=== PATIENT | female | born 1980 | race Caucasian/White ===

== ENCOUNTER 2019-02-07 05:37 | Day surgery (SDC) | payer OTHER ==
[2019-02-04 12:51] LABS: HEMATOCRIT 39.1 % (36.0-47.0); HEMOGLOBIN 13.6 g/dL (12.0-15.5); MEAN CORPUSCULAR HEMOGLOBIN 31.6 pg (27.0-33.4); MEAN CORPUSCULAR HGB CONC 34.9 g/dL (32.0-36.0); MEAN CORPUSCULAR VOLUME 91 fl (80-97); PLATELET COUNT 275 10^3/uL (150-450); RED BLOOD COUNT 4.32 10^6/uL (3.72-5.28); RED CELL DISTRIBUTION WIDTH 12.4 % (11.5-14.0); WHITE BLOOD COUNT 6.7 10^3/uL (4.0-10.5)
[2019-02-04 12:53] LABS: APPEARANCE,URINE CLEAR; BILIRUBIN,URINE NEGATIVE (NEGATIVE); COLOR,URINE YELLOW; GLUCOSE, URINE NEGATIVE (NEGATIVE); KETONES,URINE 20 mg/dL (NEGATIVE); LEUKOCYTE ESTERASE,URINE SMALL (NEGATIVE); NITRITE,URINE NEGATIVE (NEGATIVE); PROTEIN,URINE NEGATIVE (NEGATIVE); URINE SPECIFIC GRAVITY 1.011; UROBILINOGEN,URINE NEGATIVE mg/dL (<2.0)
[2019-02-04 13:19] LABS: ALANINE AMINOTRANSFERASE 26 U/L (9-52); ALBUMIN 4.8 g/dL (3.5-5.0); ALKALINE PHOSPHATASE 53 U/L (38-126); ANION GAP 14 (5-19); ASPARTATE AMINO TRANSFERASE 30 U/L (14-36); BILIRUBIN,DIRECT 0.3 mg/dL (0.0-0.4); BILIRUBIN,TOTAL 0.5 mg/dL (0.2-1.3); BLOOD UREA NITROGEN 15 mg/dL (7-20); CALCIUM 9.9 mg/dL (8.4-10.2); CARBON DIOXIDE 21 mmol/L (22-30); CHLORIDE 103 mmol/L (98-107); GLUCOSE 76 mg/dL (75-110); POTASSIUM 4.7 mmol/L (3.6-5.0); SODIUM 138.4 mmol/L (137-145); TOTAL PROTEIN 7.7 g/dL (6.3-8.2)
[~2019-02-07 05:37] MED LIST: CLINDAMYCIN 900 MG/D5W RTU 900 MG/50 ML RTUPB IV ONE; GENTAMICIN SULFATE INJ 80 MG/2 ML VIAL ONE
[2019-02-07] MEDS ORDERED: LIDOCAINE 2% INJ-PF (20 MG/ML) 10 ML AMPUL ONE (06:59)
[2019-02-07] MEDS ORDERED: PROPOFOL INJ 200 MG/20 ML VIAL IV ONE (06:59)
[2019-02-07] MEDS ORDERED: MIDAZOLAM 2 MG/2 ML INJ ONE (06:59)
[2019-02-07] MEDS ORDERED: HYDROMORPHONE HCL INJ/PF 2 MG/ML AMPULE ONE (06:59)
[2019-02-07] MEDS ORDERED: FENTANYL CITRATE INJ/PF 100 MCG/2 ML AMPUL ONE (06:59)
[2019-02-07] MEDS ORDERED: ACETAMINOPHEN 1,000 MG/100 ML RTUPB IV ONE (06:59)
[2019-02-07] MEDS ORDERED: SCOPOLAMINE HYDROBROMIDE 1.5 MG PATCH.TD72 ONE (07:11)
[2019-02-07] MEDS ORDERED: PROMETHAZINE HCL INJ 25 MG/1 ML VIAL IV PRN ×3 (08:28→10:05)
[2019-02-07] MEDS ORDERED: DIPHENHYDRAMINE HCL 50 MG/ML VIAL IV PRN (08:28)
[2019-02-07] MEDS ORDERED: FENTANYL CITRATE INJ/PF 100 MCG/2 ML AMPUL IV PRN ×3 (08:28)
[2019-02-07] MEDS ORDERED: ONDANSETRON HCL INJ/PF 4 MG/2 ML SDV IV PRN (08:28)
[2019-02-07] MEDS ORDERED: MEPERIDINE HCL/PF INJ 25 MG/1 ML DISP.SYRIN IV PRN (08:28)
[2019-02-07] MEDS ORDERED: SUGAMMADEX SODIUM 200 MG/2 ML SDV IV ONE (09:14)
[2019-02-07] MEDS: FENTANYL CITRATE INJ/PF 100 MCG/2 ML AMPUL ONE ×2 (09:38→09:43)
[2019-02-07] MEDS ORDERED: SIMETHICONE 80 MG TAB.CHEW PO PRN (10:05)
[2019-02-07] MEDS ORDERED: ACETAMINOPHEN 1,000 MG/100 ML RTUPB IV PRN (10:05)
[2019-02-07] MEDS ORDERED: OXYTOCIN/NORMAL SALINE 20 UNIT/1,000 ML RTUINJ IV PRN (10:05)
[2019-02-07] MEDS ORDERED: MORPHINE SULFATE 10 MG/ML INJ IV PRN (10:05)
[2019-02-07] MEDS ORDERED: ACETAMINOPHEN 325 MG TABLET PO PRN (10:05)
[2019-02-07] MEDS ORDERED: OXYCODONE-ACETAMINOPHEN 5-325 MG TABLET PO PRN (10:05)
[2019-02-07] MEDS: IBUPROFEN 800 MG TABLET PO SCH ×2 (12:29→22:38)
[2019-02-07] MEDS ORDERED: NEOSTIGMINE METHYLSULFATE 10 MG/10 ML VIAL ONE (13:28)
[2019-02-07] MEDS ORDERED: ONDANSETRON HCL INJ/PF 4 MG/2 ML SDV ONE (13:28)
[2019-02-07] MEDS ORDERED: DEXAMETHASONE SOD PHOSPHATE INJ 4 MG/1 ML VIAL ONE (13:28)
[2019-02-07] MEDS ORDERED: METOCLOPRAMIDE HCL INJ/PF 10 MG/2 ML SDV ONE (13:28)
[2019-02-07] MEDS ORDERED: GLYCOPYRROLATE 1 MG/5 ML SYRINGE ONE (13:28)
[2019-02-07] MEDS ORDERED: ROCURONIUM BROMIDE INJ 50 MG/5 ML VIAL IV ONE (13:28)
[2019-02-07] MEDS: KETOROLAC TROMETHAMINE INJ/PF 30 MG/1 ML SDV IV SCH ×2 (14:28→21:56)
--- NOTE | 2019-02-07 14:39 | OPERATIVE REPORT E ---
Operative Report NAME: PAULINA OSCAR : 1980 AGE: 38Y DATE OF SURGERY: 02/07/2019 ROOM: 219 PREOPERATIVE DIAGNOSIS: Endometriosis, chronic pelvic pain, and abnormal uterine bleeding. POSTOPERATIVE DIAGNOSIS: Endometriosis, chronic pelvic pain, and abnormal uterine bleeding. OPERATION: Robotic-assisted total laparoscopic hysterectomy with bilateral salpingectomy with excision and fulguration of endometriosis. SURGEON: HEAVENLY MEZA M.D. ANESTHESIA: Mariposa Olvera M.D. with general and Franco Adame CRNA FINDINGS: A 14-week sized uterus, small amounts of endometrial implants in the bilateral uterosacral ligaments, normal tubes and ovaries. No other indications of pelvic adhesive disease. Normal-appearing appendix. COMPLICATIONS: None. ESTIMATED BLOOD LOSS: 100 mL. SPECIMENS REMOVED: Uterus, cervix, and fallopian tubes x2 as well as a left uterosacral pelvic biopsy. PROCEDURE IN DETAIL: The patient was taken to the operating room, prepared and draped in a normal sterile fashion in the dorsal lithotomy position. Under sterile conditions a Lutz catheter was placed to gravity. A speculum was then placed into the vagina and the cervix was prepped with Betadine and grasped on the anterior lip with a single-tooth tenaculum and dilated to accommodate the [employer] uterine manipulator which was placed without difficulty. The speculum and the tenaculum were then removed. Gloves were changed and attention was turned to the upper portion of the case. An umbilical skin incision was made to accommodate GelPort placement. The incision was carried through to the underlying layer of fascia with the scalpel and the fascia was grasped and then transected using Mayos. The peritoneal cavity was entered sharply with the Mayos as well. The GelPort was then placed with the camera, trocar, and air seal. The abdomen was then inflated with approximately 2 L of CO2 gas, and the patient was placed in steep Trendelenburg. The camera was introduced and the above findings were noted. Under direct visualization two 5 mm ports were placed approximately 10 cm on either side of the umbilicus. The robot was docked, and using the monopolar scissors and the vessel sealer I began with excision of the endometrial implant that was located on the left uterosacral ligament. This was passed off to the surgical garment assembly supervisor corporate administrative assistant through the corporate administrative assistant port. We then began with the right fallopian tube, and this was removed using the monopolar scissors and vessel sealer as needed. This was completely freed and then passed off through the accessory corporate administrative assistant port as well. The utero-ovarian ligament was then transected using the vessel sealer, and the rest of the uterine artery was skeletonized, transected, and coagulated using the vessel sealer until we reached the level of the internal cervical os. At this point the bladder flap was begun using the monopolar scissors and blunt dissection. We then turned our attention to the left side, and the left fallopian tube was removed in a similar fashion using monopolar scissors and the vessel sealer as needed, and this was passed off through the accessory port. The utero-ovarian ligament on this side was also transected using the vessel sealer, and the rest of the uterine artery was skeletonized, coagulated, and ligated using the vessel sealer down to the same level, and the bladder flap was then completed with further blunt dissection. We then began the colporrhaphy on the posterior aspect as this was where the cup was most noticeable through the mucosa, and the colporrhaphy was performed using the monopolar scissors following the cup in a circumferential fashion until the specimen was completely freed. The specimen was then removed through the vagina without difficulty. The instruments were changed to a Abhilash Needle Direct Mail Manager and a ProGrasp. The V-Loc needle was introduced through the assistance port, and the V-Loc was used to close the vaginal cuff, incorporating the uterosacral ligaments into the angle closure of the vaginal cuff for support. Once this was completed the *------* was ligated and removed through the assistance port. The ureters were inspected carefully and both found to be peristalsing normally with no signs of hydroureter. The robot was then undocked. I rescrubbed and closed the fascia at the umbilicus incision using 0 Vicryl on a UR6 needle and then closed the subcutaneous space using 2 interrupted sutures of the same 0 Vicryl. The skin at all three incision sites was closed with 4-0 Vicryl. The patient tolerated the procedure well. Sponge, lap, and needle counts were correct x2, and the patient was taken to recovery in stable condition. DICTATING PHYSICIAN: HEAVENLY MEZA M.D. [id number] PHY#: [id number] ID: [id number] JOB#: [id number] ACCT: [id number] cc:HEAVENLY MEZA M.D. >
[2019-02-07] MEDS ORDERED: HYOSCYAMINE SULFATE 0.125 MG TABLET PO PRN (16:51)
[2019-02-07] MEDS ORDERED: RINGERS SOLUTION,LACTATED 500 ML IV ONE (17:00)
[2019-02-07] MEDS: DOCUSATE SODIUM 100 MG CAPSULE PO SCH (17:31)
[2019-02-07] MEDS: OXYCODONE-ACETAMINOPHEN 5-325 MG TABLET PO PRN ×2 (17:57→23:46)
[2019-02-07] MEDS: RINGERS SOLUTION,LACTATED 1,000 ML IV PRN ×2 (18:19→21:57)
[2019-02-08] MEDS: IBUPROFEN 800 MG TABLET PO SCH ×2 (00:52→06:25)
[2019-02-08] MEDS: OXYCODONE-ACETAMINOPHEN 5-325 MG TABLET PO PRN ×2 (04:55→08:57)
[2019-02-08] MEDS: KETOROLAC TROMETHAMINE INJ/PF 30 MG/1 ML SDV IV SCH (06:20)
[2019-02-08 06:41] LABS: HEMATOCRIT 34.9 % (36.0-47.0); MEAN CORPUSCULAR HEMOGLOBIN 31.5 pg (27.0-33.4); MEAN CORPUSCULAR HGB CONC 34.4 g/dL (32.0-36.0); MEAN CORPUSCULAR VOLUME 92 fl (80-97); PLATELET COUNT 250 10^3/uL (150-450); RED BLOOD COUNT 3.81 10^6/uL (3.72-5.28); RED CELL DISTRIBUTION WIDTH 12.5 % (11.5-14.0); WHITE BLOOD COUNT 9.7 10^3/uL (4.0-10.5)
--- NOTE | 2019-02-08 07:51 | PDOC DISCHARGE SUMMARY ---
General - Admit/Disc Date/PCP Admission Date/Primary Care Provider: 02/07/19 12:01 CAL MINAYA MD Discharge Date: 02/08/19 - Discharge Diagnosis (1) Abnormal uterine bleeding Is this a current diagnosis for this admission?: Yes (2) Endometriosis Is this a current diagnosis for this admission?: Yes (3) Chronic female pelvic pain Is this a current diagnosis for this admission?: Yes - Additional Information Home Medications: Ascorbic Acid/Multivit-Min [Emergen-C 1,000 mg Packet] 1,000 mg PO DAILY 02/04/19 Diphenhydramine HCl [Benadryl] 25 mg PO QPM 02/04/19 Ethynodiol D-Ethinyl Estradiol [Zovia 1-50E] 1 each PO DAILY 02/04/19 Alprazolam [Xanax Xr 1 mg Tablet Extended Release] 1 tab PO PRN 02/07/19 History of Present Illness History of Present Illness: PAULINA OSCAR is a 38 year old female Hospital Course Hospital Course: underwent scheduled RATLH w/ b/l salpingectomy with excision and fulgaration of endometriosis. unremarkable postoperative course. voiding and tolerating r egular diet Physical Exam - Physical Exam Vital Signs: Temp Pulse Resp BP Pulse Ox 98.0 F 95 16 115/63 99 02/08/19 04:36 02/08/19 04:36 02/08/19 04:36 02/08/19 04:36 02/08/19 04:36 Intake & Output 02/07/19 02/08/19 02/09/19 06:59 06:59 06:59 Intake Total 0 3424 Output Total 2150 Balance 0 1274 Weight 59.42 kg General appearance: PRESENT: no acute distress, cooperative Head exam: PRESENT: atraumatic GI/Abdominal exam: PRESENT: soft - incsions clean/dry/intact Result Laboratory Results: 02/08/19 06:12 02/04/19 12:22 02/08/19 06:12 WBC 9.7 RBC 3.81 Hgb 12.0 Hct 34.9 L MCV 92 MCH 31.5 MCHC 34.4 RDW 12.5 Plt Count 250 Plan Discharge Plan: discharge home with scheduled follow up in [address] Grider Time Spent: Less than 30 Minutes Acute Heart Failure Is this a Heart Failure Patient?: No
[2019-02-08 10:04] VITALS: BP 119/76
[2019-02-08] MEDS: DOCUSATE SODIUM 100 MG CAPSULE PO SCH (10:16)
== END 2019-02-08 10:17 | disposition home or self-care (01) ==
LOC: OROUT 05:37 → 2S 11:29 → OROUT 12:00 → UNDOADMIN 12:01 → 2S 12:01 → OROUT 02-08 10:17 → UNDODISIN 02-08 10:17
PROVIDERS: ATTEND Obstetrics & Gynecology
DX: N80.0 Endometriosis of uterus (principal); G89.29 Other chronic pain; R10.2 Pelvic and perineal pain; N93.9 Abnormal uterine and vaginal bleeding, unspecified; Z88.0 Allergy status to penicillin; Z79.899 Other long term (current) drug therapy; Z01.818 Encounter for other preprocedural examination
CPT/HCPCS: 58571; 58662; S2900; 36415; 80053; 81001; 81025; 840; 85027; 86850; 86900; 86901; 88305; 88307; 94799; J0131; J1100; J1170; J1580; J1885; J2250; J2270; J2405; J2704; J2710; J2765; J3010; J3490; J7120

== ENCOUNTER 2019-04-24 07:29 | Day surgery (SDC) | payer OTHER ==
[~2019-04-24 07:29] MED LIST changes: -CLINDAMYCIN 900 MG/D5W RTU 900 MG/50 ML RTUPB IV ONE; +COCAINE HCL 4% TOPICAL SOLN 4 ML ONE; -GENTAMICIN SULFATE INJ 80 MG/2 ML VIAL ONE; +LACTATED RINGERS 1000 ML IV PRN; +LIDOCAINE 0.5% INJ-PF (5 MG/ML) 50 ML SDV SUBCUT PRN; +OXYMETAZOLINE HCL 0.05% NASAL SPRAY 15 ML BOTTLE ONE; +TRIAMCINOLONE ACETONIDE INJ 40 MG/1 ML VIAL ONE
[2019-04-24] MEDS ORDERED: FENTANYL CITRATE INJ/PF 100 MCG/2 ML AMPUL ONE (07:54)
[2019-04-24] MEDS ORDERED: MIDAZOLAM 2 MG/2 ML INJ ONE (07:54)
[2019-04-24] MEDS ORDERED: PROPOFOL INJ 200 MG/20 ML VIAL IV ONE (07:55)
[2019-04-24] MEDS ORDERED: SCOPOLAMINE HYDROBROMIDE 1.5 MG PATCH.TD72 ONE (08:46)
[2019-04-24] MEDS ORDERED: OXYMETAZOLINE HCL 0.05% NASAL SPRAY 15 ML BOTTLE ONE (09:31)
[2019-04-24] MEDS ORDERED: FENTANYL CITRATE INJ/PF 100 MCG/2 ML AMPUL IV PRN ×3 (09:34)
[2019-04-24] MEDS ORDERED: OXYCODONE-ACETAMINOPHEN 5-325 MG TABLET PO PRN ×2 (09:34)
[2019-04-24] MEDS ORDERED: PROMETHAZINE HCL INJ 25 MG/1 ML VIAL IV PRN (09:34)
[2019-04-24] MEDS ORDERED: DIPHENHYDRAMINE HCL 50 MG/ML VIAL IV PRN (09:34)
[2019-04-24] MEDS ORDERED: MORPHINE SULFATE 10 MG/ML INJ IV PRN (09:34)
[2019-04-24] MEDS ORDERED: ONDANSETRON HCL INJ/PF 4 MG/2 ML SDV IV PRN (09:34)
[2019-04-24] MEDS ORDERED: MEPERIDINE HCL/PF INJ 25 MG/1 ML DISP.SYRIN IV PRN (09:34)
[2019-04-24] MEDS ORDERED: DEXAMETHASONE SOD PHOS INJ 10 MG/1 ML VIAL ONE (10:23)
[2019-04-24] MEDS ORDERED: HYDROCODONE/ACETAMINOPHEN 5-325 MG TABLET PO PRN (10:30)
[2019-04-24] MEDS ORDERED: HYDROCODONE/ACETAMINOPHEN 5-325 MG TABLET ONE (11:10)
--- NOTE | 2019-04-24 11:10 | OPERATIVE REPORT E ---
Operative Report NAME: PAULINA OSCAR : 1980 AGE: 38Y DATE OF SURGERY: 04/24/2019 ROOM: HISTORY: This 38-year-old female with a right laryngeal lesion that arose secondary to intubation presents today for a microdirect laryngoscopy with excision of the right laryngeal mass. Informed consent was obtained from the patient. PREOPERATIVE DIAGNOSIS: Right laryngeal mass. POSTOPERATIVE DIAGNOSIS: Right laryngeal mass. OPERATION: 1. Microdirect laryngoscopy 2. Excision of right laryngeal mass. SURGEON: MITALI HURT MD ANESTHESIA: General via endotracheal intubation. DESCRIPTION OF PROCEDURE: After receiving informed consent from the patient, she was taken to the operating room and placed supine on the operating table. After a successful induction using a small endotracheal tube, the patient was then turned 90 degrees and a head drape was placed. A guard was placed over the upper teeth and the Margot laryngoscope was inserted atraumatically down into the laryngeal inlet. It was then suspended. The laryngeal mass was identified. It was found to be on the right side at about mid cord level. Next, a pledget soaked with 4% cocaine was placed over the true vocal cords. Next, microforceps to the right grasped the laryngeal mass and this was excised en toto using curved scissors. After the excision it was noted that the mass appeared to be attached to the medial portion of the ventricle. Hemostasis was obtained using the 4% cocaine. No further laryngeal lesions were noted. The patient was then taken out of suspension and the Margot laryngoscope was removed atraumatically from the patient. The patient was then given back to Anesthesia who successfully extubated the patient without any complications. The estimated blood loss was minimal. Fluids were 500 mL crystalloid. The patient was then transferred to the postanesthesia care unit in stable condition, spontaneous respirations, no complications. DICTATING PHYSICIAN: MITALI HURT M.D. [id number] PHY#: [id number] ID: [id number] JOB#: [id number] ACCT: [id number] cc:MITALI HURT MD > [facility]
[2019-04-24 12:27] VITALS: BP 136/99
[2019-04-24] MEDS ORDERED: LIDOCAINE 2% INJ-PF (20 MG/ML) 2 ML AMPUL ONE (14:51)
[2019-04-24] MEDS ORDERED: ROCURONIUM BROMIDE INJ 50 MG/5 ML VIAL IV ONE (14:51)
[2019-04-24] MEDS ORDERED: SUCCINYLCHOLINE CHLORIDE INJ 200 MG/10 ML VIAL ONE (14:51)
[2019-04-24] MEDS ORDERED: ONDANSETRON HCL INJ/PF 4 MG/2 ML SDV ONE (14:51)
[2019-04-24] MEDS ORDERED: DEXAMETHASONE SOD PHOSPHATE INJ 4 MG/1 ML VIAL ONE (14:51)
== END 2019-04-24 12:11 | disposition home or self-care (01) ==
LOC: OROUT 07:29
PROVIDERS: ATTEND Otolaryngology
DX: J38.3 Other diseases of vocal cords (principal); R49.0 Dysphonia; T85.79XA Infection and inflammatory reaction due to other internal prosthetic devices, implants and grafts, initial encounter; X58.XXXA Exposure to other specified factors, initial encounter; Z87.891 Personal history of nicotine dependence
CPT/HCPCS: 88305 ×2; 31535; J2250; J3490 ×4; J1100 ×2; J3010; J0330; J2405; J2704; 320; J3301